=== PATIENT | female | born 1980 | race Caucasian/White ===

== ENCOUNTER 2024-10-17 09:42 | Emergency (ER) | payer OTHER, SELFPAY ==
--- NOTE | 2024-10-17 09:49 | ED.URI ---
HPI - URI/Sore Throat General Chief Complaint: Upper Respiratory Infection Stated Complaint: sore throat/ear pain Time Seen by Provider: 10/17/24 09:49 Source: patient Mode of arrival: ambulatory Limitations: no limitations History of Present Illness HPI Narrative: Keli is a 44 year old female patient presenting to the clinic today with c/o sore throat, cough, ear pain, chest congestion, and body aches x 2-3 days. No chest pain or sob MD elicited complaint: sore throat and nasal congestion Related Data Allergies Allergy/AdvReac Type Severity Reaction Status Date / Time No Known Allergies Allergy Verified 10/17/24 10:08 Review of Systems Review of Systems: Pertinent positives per HPI. Patient denies any fever, chills, rash, headache, visual changes, dizziness, shortness of breath, chest pain, palpitations, nausea, vomiting, diarrhea, constipation, abdominal pain, or any urinary issues. PMFSH Comments At the time of my signature, I reviewed and agree with the nursing past medical, surgical, social, and family history. There is no relevant family history pertinent to the patient complaint. Exam Narrative: General: Well-developed, well nourished, in no apparent distress Head: Normocephalic, atraumatic Eyes: Pupils equally round and reactive to light bilaterally, EOM intact, sclera and conjunctive clear, no discharge, lids normal Ears: TMs intact and congested, ear canals clear, no drainage, grossly hearing normal. Nose: Nares patent, clear nasal discharge, no inflammation, no sinus tenderness. Mouth: Oral pharynx without lesions or masses, good dentition, MMM. Neck: Supple, trachea midline, no enlargement of anterior or posterior cervical nodes, no thyroid masses or goiter palpable. Cardio: Regular rate and rhythm, s1 and s2 normal, no murmur appreciated. Resp: Clear to auscultation bilaterally, no rhonchi, rales, wheezing or rubs Course Course Emergency Course: Portions of this record may have been created with voice recognition software. Level of Care: Express Care Visit Vital Signs Vital signs: Vital signs reviewed MDM - URI/Sore Throat MDM Narrative Medical decision making narrative: At the time of visit patient is resting comfortably on the exam table. Patient appears to be nontoxic. Labs: COVID, influenza, and strep test were performed. All testing was negative. We will send strep for culture. Plan: I suspect patient has URI with cough and congestion/pharyngitis. Prescription for prednisone was sent to the pharmacy. Supportive measures were discussed with the patient and they voiced understanding discharge instructions and agrees to treatment plan. Return precautions reviewed Differential Diagnosis Differential diagnosis: Likely upper respiratory infection, otitis media, sinusitis, viral infection, bronchitis, influenza, pharyngitis and other (COVID) Discharge Plan Discharge Clinical Impression: Viral infection Upper respiratory infection Qualifiers: URI type: unspecified URI Qualified Code(s): J06.9 - Acute upper respiratory infection, unspecified Pharyngitis Qualifiers: Pharyngitis/tonsillitis etiology: unspecified etiology Qualified Code(s): J02.9 - Acute pharyngitis, unspecified Patient Disposition: Home, Self-Care Condition: Stable Instructions: Antibiotic Form, Pharyngitis (ED), Upper Respiratory Infection (ED), Viral Syndrome (ED) Additional Instructions: Take prescription medications only as prescribed-prednisone Increase fluids and stay well hydrated Tylenol/motrin for pain/fever Flonase and OTC antihistamines as directed Vicks vapor rub to open sinuses Sinus rinses for congestion Cepacol spray, cough drops, throat lozenges, warm tea with honey/lemon, gargle salt water to soothe throat BRAT diet for diarrhea Clear liquids x 24 hours then advance as tolerated for nausea/vomiting Go to the ED if you develop a worsening in your condition- high fever not controlled by Tylenol or Motrin, dehydration, weakness, lethargy, shortness of breath, or chest pain. Follow up with your PCP in 3-5 days if symptoms persist. Patient Language: Singaporean Prescriptions: New prednisone 20 mg tablet 40 mg PO DAILY 5 Days Qty: 10 0RF Follow-up/Referrals: UNKNOWN,DOCTOR [Non-Staff] - Stand Alone Forms: Work/School Release IP Time of Disposition: 10:25 Quality NIHSS Nursing Documentation ED NIHSS nursing documentation: reviewed/agree
[2024-10-17 10:05] VITALS: BP 149/94; PULSE 70; RESP 18; TEMP 36.3; O2SAT 99
[2024-10-17 10:22] LABS: EDSTREPNEGPOS1 Negative (Negative)
[2024-10-17 10:22] LABS: EDINFLUASCREEN Negative (Negative); EDINFLUBSCREEN Negative (Negative)
[2024-10-17 10:23] LABS: EDCOVIDSCREEN Negative (Negative)
--- OUTSIDE RECORDS SUMMARY | 2024-10-17 10:32 | XMS_ITS | Encounter Summary ---
Author Organization [facility] Address [address] [facility] [place] [address] Phone Care Team Providers Care Power Systems Engineer Name Role Phone William Mejia MD Primary Care Provider [phone] Corrie Reddy APRN, WIRE BOUND BOX MACHINE OPERATOR Unavailable [phone] Reason for Visit * Reason Onset Date Comments Medication Refill 10/16/2024 armodafinil 25 0 MG Tablet Encounter Details Date Type Department Care Team (Late st Contact Info) Description 10/16/2024 MyChart RX Renewal [facility] [address] [place] [address] Joseph Ness APRN, WIRE BOUND BOX MACHINE OPERATOR [address] [place] [address] Medication Renewal Reviewed Social History Tobacco Use Types Packs/Day Years Used Date Smoking Tobacco: Every Day Cigarettes 1 12 Passive Smoke Exposure: Past Smokeless Tobacco: Never Alcohol Use Standard Drinks/Week Comments No 0 (1 standard drink = 0.6 oz pur e alcohol) [facility] Utilities Answer Date Recorded In the past 12 months has [employer], gas, oil, or water [place] threatened to shut off services in your home? Patient declined 10/03/2024 Social Connection and Isolat ion Panel [NHANES] Answer Date Recorded In a typical week, how many times do you talk on the phone with family, friends, or neighbors? More than three times a week 10/03/2024 How often do you get togethe r with friends or relatives? Once a week 10/03/2024 How often do you attend chur ch or yarsani services? Never 10/03/2024 Do you belong to any clubs o r organizations such as advent groups, unions, fraternal or athletic groups, or school groups? No 10/03/2024 How often do you attend meet ings of the clubs or organizations you belong to? Never 10/03/2024 Are you , , di vorced, , never , or living with a partner? 10/03/2024 AUDIT-C Answer Date Recorded Q1: How often do you have a drink containing alcohol? Never 10/03/2024 Q2: How many drinks containi ng alcohol do you have on a typical day when you are drinking? Patient does not drink Q3: How often do you have si x or more drinks on one occasion? Never 10/03/2024 Overall Financial Resource Strain (CARDIA) Answe r Date Recorded How hard is it for you to pa y for the very basics like food, housing, medical care, and heating? Not very hard 10/03/2024 PHQ-2 Answer Date Recorded Total Score - Questions 1-9 18 07/10 [facility] - Occupational Stress Questionnaire Answer Date Recorded Do you feel stress - tense, restless, nervous, or anxious, or unable to sleep at night because your mind is troubled all the time - these days? Very much 10/03/2024 Exercise Vital Sign Answer Date Recorde d On average, how many days pe r week do you engage in moderate to strenuous exercise (like a brisk walk)? 4 days 10/03/2024 On average, how many minutes do you engage in exercise at this level? 30 min 10/03/2024 Hunger Vital Sign Answer Date Recorded Within the past 12 months, y ou worried that your food would run out before you got the money to buy more. Patient declined Within the past 12 months, t he food you bought just didn't last and you didn't have money to get more. Patient declined PRAPARE - Transportation Answer Date Re corded In the past 12 months, has l ack of transportation kept you from medical appointments or from getting medications? No 09/09 In the past 12 months, has l ack of transportation kept you from meetings, work, or from getting things needed for daily living? No 10/03/2024 Housing Stability Vital Sign Answer Jose Guadalupe e Recorded In the last 12 months, was t here a time when you were not able to pay the mortgage or rent on time? Yes 10/03/2024 In the past 12 months, how m any times have you moved where you were living? 1 10/03/2024 At any time in the past [address] [facility], were you homeless or living in a detention (including now)? No 10/03/2024 Education Answer Date Recorded What is the highest level of school you have completed or the highest degree you have received? Bachelor's degree (e.g., BA, AB, BS) 02/17/2021 Comments No Sex and Gender Information Value Date Recorded Sex Assigned at Female 08/07/2023 2:01 PM PATIENT SERVICE SPECIALIST Legal Sex Female 3:34 AM PATIENT SERVICE SPECIALIST Gender Identity Female 08/07/2023 2:01 PM PATIENT SERVICE SPECIALIST Sexual Orientation Straight 08/07/2023 2: 01 PM PATIENT SERVICE SPECIALIST documented as of this encounter Miscellaneous Notes * Telephone Encounter - Miranda Art RN - 10/16/2024 1:12 PM CDT patient requesting refill of armodafinil (Nuvigil) 250 MG Tablet Last office visit: 07/16/24 Follow up scheduled: 01/09/2025 9:30 AM Joseph Ness [facility]: Virtual Visit [phone] Date of last refill: 08/29/24 Plan Continue CPAP at new settings (8-15) all hours of sleep. Aim for a consistent 7-8 hour sleep opportunity nightly and apply CPAP every night. Will have RN look into DME options that are closer to patient's new home and will contact patient with these options. Mask fitting through new DME for nasal pillow mask. Continue armodafinil 250 mg daily PRN. Refill of this med will be contingent on nightly CPAP use. Follow up in 6 months. Call sooner if needed. Pended for provider approval, if deemed appropriate Routed Dr Pace in Joseph VILLATORO's absence documented in this encounter Plan of Treatment Upcoming Encounters Date Type Department Care Team (Late st Contact Info) Description 10/25/2024 10:40 AM CDT Office Visit [facility] [place] [address] [place] [phone] Fiorella Argueta, CIRCULATION MANAGER, WIRE BOUND BOX MACHINE OPERATOR [address] [place] [address] 01/09/2025 9:30 AM CDT Telemedicine [facility] [address] [place] [phone] Joseph Ness APRN, WIRE BOUND BOX MACHINE OPERATOR [address] [place], [place] [address] Discharge Disposition: Discharged to home or Selfcare documented as of this encounter Visit Diagnoses Diagnosis Hypersomnia Hypersomnia, unspecified documented in this encounter Additional Health Concerns Assessment Noted Time PHQ-9 Depression Total Score: 18 020 9:00 AM PATIENT SERVICE SPECIALIST documented as of this encounter Care Teams Power Systems Engineer Relationship Specialty Start Date End Date William Mejia MD [address] [address] PCP - General Internal Medicine/Pediatrics 04/11/15 Corrie Reddy APRN, WIRE BOUND BOX MACHINE OPERATOR [address] [place] [address] Nurse Practitioner Advanced Practice Nurse 07/09/21 documented as of this encounter
--- OUTSIDE RECORDS SUMMARY | 2024-10-17 10:32 | XMS_ITS | Encounter Summary ---
Author Organization [facility] Address [address] [place] [address] Phone Care Team Providers Care Counterintelligence Specialist Name Role Phone William Mejia MD Primary Care Provider Corrie Reddy APRN, DIET TECHNICIAN REGISTERED Unavailable Reason for Visit * Reason Onset Date Comments Medication Refill 07/01/2021 buspar, buprop ion Encounter Details Date Type Department Care Team (Late st Contact Info) Description 07/01/2021 Refill [facility] [address] [place], [place] [phone] Corrie Reddy APRN, DIET TECHNICIAN REGISTERED [address] [place], [place] [phone] Medication Refill (buspar, bupropion ) Social History Tobacco Use Types Packs/Day Years Used Date Smoking Tobacco: Every Day Cigarettes 1 12 Smokeless Tobacco: Never Alcohol Use Standard Drinks/Week Comments No 0 (1 standard drink = 0.6 oz pur e alcohol) PHQ-2 Answer Date Recorded Total Score - Questions 1-9 18 07/10 Education Answer Date Recorded What is the highest level of school you have completed or the highest degree you have received? Bachelor's degree (e.g., BA, AB, BS) 02/17/2021 Comments No Sex and Gender Information Value Date Recorded Sex Assigned at Female 08/07/2023 2:01 PM BULLET SWAGING MACHINE ADJUSTER Legal Sex Female 3:34 AM BULLET SWAGING MACHINE ADJUSTER Gender Identity Female 08/07/2023 2:01 PM BULLET SWAGING MACHINE ADJUSTER Sexual Orientation Straight 08/07/2023 2: 01 PM BULLET SWAGING MACHINE ADJUSTER COVID-19 Exposure Response Date Recorded In the last month, have you been in contact with someone who was confirmed or suspected to have Coronavirus / COVID-19? Yes 06/05/2021 2:01 PM CDT documented as of this encounter Miscellaneous Notes * Telephone Encounter - Radha Ortega RN - 07/01/2021 9:27 AM CST Refill request received for Buspar 10 mg three times daily. Bupropion XL 300 mg every morning. EMANI: 01/14/2021 NOV: Visit date not found Last Ordered: Buspar 01/14/21 #270 with 0 refills. Bupropion 01/14/21 #90 with 0 refills. Medication pended and routed for review. ET SWAGING MACHINE ADJUSTER documented in this encounter Plan of Treatment Upcoming Encounters Date Type Department Care Team (Late st Contact Info) Description 10/25/2024 10:40 AM CDT Office Visit [facility] [address] [phone] Fiorella Argueta, FUEL ATTENDANT, DIET TECHNICIAN REGISTERED [address] [place] [address] 01/09/2025 9:30 AM CDT Telemedicine [facility] [address] [place] [phone] Joseph Ness, FUEL ATTENDANT, DIET TECHNICIAN REGISTERED [address] [place], [place] [phone] Discharge Disposition: Discharged to home or Selfcare documented as of this encounter Visit Diagnoses Diagnosis Persistent mood (affective) disorder, unspecified (HCC) Generalized anxiety disorder with panic attacks documented in this encounter Additional Health Concerns Infection Onset Date Last Indicated Resolved Time COVID - 19 08/07/2021 08/07/2021 08/27/2021 12:1 6 AM BULLET SWAGING MACHINE ADJUSTER COVID - 19 07/30/2022 07/30/2022 08/09/2022 12:1 6 AM BULLET SWAGING MACHINE ADJUSTER Influenza 07/30/2022 07/30/2022 08/06/2022 12:1 6 AM BULLET SWAGING MACHINE ADJUSTER COVID - 19 Comment:Rapid strep positive 08/08/2023 08/08/2023 08/11/2023 12:22 PM BULLET SWAGING MACHINE ADJUSTER Assessment Noted Time PHQ-9 Depression Total Score: 18 020 9:00 AM BULLET SWAGING MACHINE ADJUSTER documented as of this encounter Care Teams Counterintelligence Specialist Relationship Specialty Start Date End Date William Mejia MD [address] [facility] [address] [place], [place] [phone] PCP - General Internal Medicine/Pediatrics 04/11/15 Corrie Reddy APRN, DIET TECHNICIAN REGISTERED [address] [place], [place] [phone] Nurse Practitioner Advanced Practice Nurse 07/09/21 documented as of this encounter
--- OUTSIDE RECORDS SUMMARY | 2024-10-17 10:32 | XMS_ITS | Encounter Summary ---
Author Organization [facility] Address [address] [place] [address] Phone Care Team Providers Care Carton Repairer Name Role Phone William Mejia MD Primary Care Provider Corrie Reddy APRN, LOCAL COMPANY TRUCK DRIVER Unavailable [phone] Reason for Visit * Reason Onset Date Comments Prior Authorization 10/16/2024 armodafinil Encounter Details Date Type Department Care Team (Late st Contact Info) Description 10/16/2024 Telephone [facility] [address] [place] [address] Ihsan Pace MD [address] [place], [place] [phone] Prior Authorization (armodafinil) Social History Tobacco Use Types Packs/Day Years Used Date Smoking Tobacco: Every Day Cigarettes 1 12 Passive Smoke Exposure: Past Smokeless Tobacco: Never Alcohol Use Standard Drinks/Week Comments No 0 (1 standard drink = 0.6 oz pur e alcohol) [facility] Utilities Answer Date Recorded In the past 12 months has [employer], gas, oil, or water [employer] threatened to shut off services in your [...] often do you attend chur ch or presybeterian services? Never 10/03/2024 Do you belong to any clubs o r organizations such as congregation groups, unions, fraternal or athletic groups, or [...] Total Score - Questions 1-9 18 07/10 [facility] - Occupational [...] any time in the past 12 m [facility], were you homeless or living in a long-term (including now)? No 10/03/2024 Education Answer Date Recorded What is the highest level of school you have completed or the highest degree you have received? Bachelor's degree (e.g., BA, AB, BS) 02/17/2021 Comments No Sex and Gender Information Value Date Recorded Sex Assigned at Female 08/07/2023 2:01 PM HOTEL DINING ROOM CASHIER Legal Sex Female 3:34 AM HOTEL DINING ROOM CASHIER Gender Identity Female 08/07/2023 2:01 PM HOTEL DINING ROOM CASHIER Sexual Orientation Straight 08/07/2023 2: 01 PM HOTEL DINING ROOM CASHIER documented as of this encounter Miscellaneous Notes * Telephone Encounter - Maria Isabel Caraballo RN - 10/16/2024 5:27 PM CDT Received fax from [employer] in [place], [place] stating prior authorization is needed for armodafinil. Submitted PA request for armodafinil via [employer], along with sleep study and 07/16/24 televisitnotes. Aaron #[id number]. documented in this encounter Plan of Treatment Upcoming Encounters Date Type Department Care Team (Late st Contact Info) Description 10/25/2024 10:40 AM CDT Office Visit [facility] - [address] [address] Fiorella Argueta, BRANCH EMPLOYMENT COORDINATOR, LOCAL COMPANY TRUCK DRIVER [address] [place], [place] [address] 01/09/2025 9:30 AM CDT Telemedicine [facility] [address] [place] [address] Joseph Ness APRN, LOCAL COMPANY TRUCK DRIVER [address] [place], [place] [phone] Discharge Disposition: Discharged to home or Selfcare documented as of this encounter Visit Diagnoses Not on filedocumented in this encounter Additional Health Concerns Assessment Noted Time PHQ-9 Depression Total Score: 18 020 9:00 AM HOTEL DINING ROOM CASHIER documented as of this encounter Care Teams Carton Repairer Relationship Specialty Start Date End Date William Mejia MD [address] [address] PCP - General Internal Medicine/Pediatrics 04/11/15 Corrie Reddy APRN, LOCAL COMPANY TRUCK DRIVER [address] [place] [address] Nurse Practitioner Advanced Practice Nurse 07/09/21 documented as of this encounter
--- OUTSIDE RECORDS SUMMARY | 2024-10-17 10:32 | XMS_ITS | Encounter Summary ---
Author Organization [facility] Address [address] [place] [address] Phone Care Team Providers Care Agriculture Internship Name Role Phone William Mejia MD Primary Care Provider Corrie Reddy APRN, SPEECH LANGUAGE PATHOLOGY ASSISTANT Unavailable [phone] Reason for Visit * Reason Comments Medication Refill Encounter Details Date Type Department Care Team (Late st Contact Info) Description 07/07/2023 Refill [facility] [place] [address] [place] [address] Fiorella Argueta, [place], SPEECH LANGUAGE PATHOLOGY ASSISTANT [address] [place], [place] [address] Medication Refill Social History Tobacco Use Types Packs/Day Years [...] Sex Assigned at Female 08/07/2023 2:01 PM AFLOAT CRYPTOLOGIC MANAGER Legal Sex Female 3:34 AM AFLOAT CRYPTOLOGIC MANAGER Gender Identity Female 08/07/2023 2:01 PM AFLOAT CRYPTOLOGIC MANAGER Sexual Orientation Straight 08/07/2023 2: 01 PM AFLOAT CRYPTOLOGIC MANAGER documented as of this encounter Miscellaneous Notes * Telephone Encounter - Penny Augustine RN - 07/07/2023 11:19 AM AFLOAT CRYPTOLOGIC MANAGER Requested Prescriptions Pending Prescriptions Disp Refills tiZANidine (ZANAFLEX) 4 MG Tablet [Pharmacy Med Name: TIZANIDINE HCL TABS 4MG] 30 Tablet 0 Sig: TAKE 1 TABLET EVERY 6 HOURS NEEDED FOR MUSCLE SPASMS Not Delegated - Muscle Relaxants Protocol Failed - 07/07/2023 4:37 AM Failed - This refill cannot be delegated Passed - Visit with relevant provider in past 12 months or upcoming 90 days Recent Visits Date Type Provider Dept 05/18/23 Office Visit Fiorella Argueta APRN, C[facility] 01/12/23 Office Visit William Mejia MD [facility] 08/31/22 Office Visit Fiorella Argueta APRN, CNP [facility] 07/30/22 Office Visit William Mejia MD [facility] 07/26/22 Office Visit Fiorella Argueta APRN, C[facility] Showing recent visits within past 365 days and meeting all other requirements Future Appointments No visits were found meeting these conditions. Showing future appointments within next 90 days and meeting all other requirements Passed - ALT less than 90 and AST less than 55 on record in past 12 months SGOT (AST) Date Value Ref Range Status 01/24/2023 24 5 - 34 U/L Final SGPT (ALT) Date Value Ref Range Status 01/24/2023 38 0 - 55 U/L Final AT CRYPTOLOGIC MANAGER documented in this encounter Plan of Treatment Upcoming Encounters Date Type Department Care Team (Late st Contact Info) Description 10/25/2024 10:40 AM CDT Office Visit [facility] - [address] [address] Fiorella Argueta APRN, SPEECH LANGUAGE PATHOLOGY ASSISTANT [address] [place] [address] 01/09/2025 9:30 AM CDT Telemedicine [facility] [address] [place] [phone] Joseph Ness APRN, SPEECH LANGUAGE PATHOLOGY ASSISTANT [address] [place] [address] Discharge Disposition: Discharged to home or Selfcare documented as of this encounter Visit Diagnoses Diagnosis Neck pain Cervicalgia documented in this encounter Additional Health Concerns Infection Onset Date Last Indicated Resolved Time COVID - 19 Comment:Rapid strep positive 08/08/2023 08/08/2023 08/11/2023 12:22 PM AFLOAT CRYPTOLOGIC MANAGER Assessment Noted Time PHQ-9 Depression Total Score: 18 020 9:00 AM AFLOAT CRYPTOLOGIC MANAGER documented as of this encounter Care Teams Agriculture Internship Relationship Specialty Start Date End Date William Mejia MD 10 [facility] [address] [place] [address] PCP - General Internal Medicine/Pediatrics 04/11/15 Corrie Reddy APRN, SPEECH LANGUAGE PATHOLOGY ASSISTANT [address] [place] [address] Nurse Practitioner Advanced Practice Nurse 07/09/21 documented as of this encounter
--- OUTSIDE RECORDS SUMMARY | 2024-10-17 10:32 | XMS_ITS | Encounter Summary ---
Author Organization [facility] Address [address] [place] [address] Phone Care Team Providers Care Thermograph Operator Name Role Phone William Mejia MD Primary Care Provider [phone] Corrie Reddy APRN, OIL BURNER MECHANIC Unavailable [phone] Encounter Details Date Type Department Care Team (Late st Contact Info) Description 10/05/2021 Behavioral Health Patient Survey [facility] Psychiatry & Psychology [address] [place], [place] [phone] Corrie Reddy APRN, OIL BURNER MECHANIC [address] [place], [place] [id number] Social History Tobacco Use Types Packs/Day Years Used Date Smoking Tobacco: Former Cigarettes 1 12 Smokeless Tobacco: Never Alcohol [...] Sex Assigned at Female 08/07/2023 2:01 PM BOMBSIGHT SPECIALIST Legal Sex Female 3:34 AM BOMBSIGHT SPECIALIST Gender Identity Female 08/07/2023 2:01 PM BOMBSIGHT SPECIALIST Sexual Orientation Straight 08/07/2023 2: 01 PM BOMBSIGHT SPECIALIST COVID-19 Exposure Response Date Recorded In the last month, have you been in contact with someone who was confirmed or suspected to have Coronavirus / COVID-19? No / Unsure 10/05/2021 2:57 PM BOMBSIGHT SPECIALIST documented as of this encounter Plan of Treatment Upcoming Encounters Date Type Department Care Team (Late st Contact Info) Description 10/25/2024 10:40 AM CDT Office Visit [facility] [place] [address] [place] [phone] Fiorella Argueta, APPOINTMENT CLERK, OIL BURNER MECHANIC [address] [place], [place] [address] 01/09/2025 9:30 AM CDT Telemedicine [facility] [address] [place] [address] Joseph Ness APRN, OIL BURNER MECHANIC [address] [place] [address] Discharge Disposition: Discharged to home or Selfcare documented as of this encounter Visit Diagnoses Not on filedocumented in this encounter Additional Health Concerns Infection Onset Date Last Indicated Resolved Time COVID - 19 07/30/2022 07/30/2022 08/09/2022 12:1 6 AM BOMBSIGHT SPECIALIST Influenza 07/30/2022 07/30/2022 08/06/2022 12:1 6 AM BOMBSIGHT SPECIALIST COVID - 19 Comment:Rapid strep positive 08/08/2023 08/08/2023 08/11/2023 12:22 PM BOMBSIGHT SPECIALIST Assessment Noted Time PHQ-9 Depression Total Score: 18 020 9:00 AM BOMBSIGHT SPECIALIST documented as of this encounter Care Teams Thermograph Operator Relationship Specialty Start Date End Date William Mejia MD [address] [id number] PCP - General Internal Medicine/Pediatrics 04/11/15 Corrie Reddy, APPOINTMENT CLERK, OIL BURNER MECHANIC [address] [place] [address] Nurse Practitioner Advanced Practice Nurse 07/09/21 documented as of this encounter
--- OUTSIDE RECORDS SUMMARY | 2024-10-17 10:32 | XMS_ITS | Encounter Summary ---
Author Organization [facility] Address [address] [place] [address] Phone Care Team Providers Care Machine Puller And Laster Name Role Phone William Mejia MD Primary Care Provider [phone] Corrie Reddy APRN, SHEET ROCK APPLIER Unavailable [phone] Reason for Visit * Reason Comments Medication Refill Encounter Details Date Type Department Care Team (Late st Contact Info) Description 10/20/2023 Refill [facility] [place] [address] [place] [address] Fiorella Argueta, [place], SHEET ROCK APPLIER [address] [place] [phone] Medication Refill Social History Tobacco Use Types [...] Sex Assigned at Female 08/07/2023 2:01 PM GREENHOUSE WORKER Legal Sex Female 3:34 AM GREENHOUSE WORKER Gender Identity Female 08/07/2023 2:01 PM GREENHOUSE WORKER Sexual Orientation Straight 08/07/2023 2: 01 PM GREENHOUSE WORKER documented as of this encounter Miscellaneous Notes * Telephone Encounter - Mayuri Rueda RN - 10/21/2023 8:11 AM CDT Medication failed the protocol, provider to review and approve the medication order if appropriate. Requested Prescriptions Pending Prescriptions Disp Refills pramipexole (MIRAPEX) 1 MG Tablet [Pharmacy Med Name: PRAMIPEXOLE DIHYDROCHLORIDE TABS 1MG] 90 Tablet 3 Sig: TAKE 1 TABLET EVERY EVENING Antiparkinson Dopaminergics and COMT Protocol Passed - 10/20/2023 11:32 PM Passed - Visit with relevant provider in the past 9 months or upcoming 90 days Recent Visits Date Type Provider Dept 10/11/23 Office Visit Fiorella Argueta APRN, CNP [facility] [place] 05/18/23 Office Visit Fiorella Argueta APRN, CNP [facility] Showing recent visits within past 270 days and meeting all other requirements Future Appointments No visits were found meeting these conditions. Showing future appointments within next 90 days and meeting all other requirements Passed - Blood pressure on record in past 12 months Clinician-entered: BP Readings from Last 3 Encounters: 10/11/23 124/88 08/08/23 115/82 05/18/23 (!) 140/98 Patient-entered: No data recorded documented in this encounter Plan of Treatment Upcoming Encounters Date Type Department Care Team (Late st Contact Info) Description 10/25/2024 10:40 AM CDT [facility] [address] [phone] Fiorella Argueta APRN, SHEET ROCK APPLIER [address] [place] [address] 01/09/2025 9:30 AM CDT Telemedicine [facility] [address] [place] [phone] Joseph Ness APRN, SHEET ROCK APPLIER [address] [place] [address] Discharge Disposition: Discharged to home or Selfcare documented as of this encounter Visit Diagnoses Not on filedocumented in this encounter Additional Health Concerns Assessment Noted Time PHQ-9 Depression Total Score: 18 020 9:00 AM GREENHOUSE WORKER documented as of this encounter Care Teams Machine Puller And Laster Relationship Specialty Start Date End Date William Mejia MD [address] [address] PCP - General Internal Medicine/Pediatrics 04/11/15 Corrie Reddy APRN, SHEET ROCK APPLIER [address] [place] [address] Nurse Practitioner Advanced Practice Nurse 07/09/21 documented as of this encounter
--- OUTSIDE RECORDS SUMMARY | 2024-10-17 10:33 | XMS_ITS | Clinical Summary ---
Author Organization [facility] Address [address] [place] [address] Phone Care Team Providers Care Office Systems Technology Instructor Name Role Phone William Mejia MD Primary Care Provider [phone] Corrie Reddy APRN, BEAM WORKER Unavailable [phone] Allergies Active Allergy Reactions Criticality Noted Date Comments No Known Drug Allergy Other (see Comments) Medications ibuprofen 800 MG PO TABS Take 1 Tab by mouth every 6 hours as needed for Pain (for temperature greater than 100.4 F). 40 Tab 2 4 Active albuterol 108 (90 Base) MCG/ACT Aerosol Solution take 2 Puffs by inhalation every 4 hours as needed for Wheezing or Cough. 8 g 3 Active SUMAtriptan (IMITREX) 50 MG Tablet Take 1 Tablet by mouth once as needed for Migraine for up to 1 dose. Use as directed. May repeat dose in 2 hours if headache recurs. 9 Tablet 3 3 Active Additional Information Patient not taking.Reported on 10/03/2024 Rizatriptan Benzoate (Maxalt) 10 MG Tablet Take 10 mg by mouth once as needed for Headaches. May repeat in 2 hours in needed Active Ascorbic Acid (VITAMIN C PO) Take by mouth. Active BIOTIN FORTE PO Take by mouth. Active [place]-3 Fatty Acids (FISH OIL PO) Take by mouth. Activ e VITAMIN D PO Take by mouth. Ac tive Zinc Sulfate (ZINCATE PO) Take by mouth. Ac tive MAGNESIUM PO Take by mouth. Ac tive B Complex Vitamins (VITAMIN-B COMPLEX PO) Take by mouth. Act edil COLLAGEN PO Take by mouth. Act edil APPLE CIDER VINEGAR PO Take by mouth. Acti ve pramipexole (MIRAPEX) 1 MG Tablet Take 1 Tablet by mouth every evening. 90 Tablet 3 5 Active metoprolol tartrate (LOPRESSOR) 25 MG Tablet Take 25 mg by mouth daily. Active venlafaxine (EFFEXOR-XR) 75 MG CAPSULE SR 24 HRIndications:P ersistent depressive disorder Take 1 Capsule by mouth daily. 90 Capsule 5 Active lisinopril (PRINIVIL, ZESTRIL) 10 MG TabletIndicatio ns:Hypertension , unspecified type Take 1 Tablet by mouth daily. 90 Tablet 3 5 Active armodafinil (Nuvigil) 250 MG TabletIndicatio ns:Hypersomnia Take 1 Tablet by mouth every morning. 30 Tablet 5 5 Active venlafaxine (Effexor XR) 37.5 MG CAPSULE SR 24 HRIndications:P ersistent depressive disorder Take 37.5 mg by mouth daily. 025 Discontin ued(Dose adjustmen t) armodafinil (Nuvigil) 250 MG TabletIndicatio ns:Hypersomnia Take 1 Tablet by mouth every morning. 30 Tablet 5 025 Discontin ued(Reord er) Active Problems Problem Noted Date Diagnosed Date Hypersomnia 07/30/2024 Migraine without status migrainosus, not intract able 08/30/2022 Reflux gastritis 07/25/2022 Thyroid nodule 07/25/2022 Borderline personality disorder 07/25/2022 Restless leg 01/23/2020 MARY (obstructive sleep apnea)- AHI 7 06/02/2015 Overview (06/02/2015): Diagnosed 04/2015 Home apnea testing, baseline apnea-hypopnea index 7 events per hour @ 233 lbs. Initially referred for excessive daytime sleepiness and fatigue Obesity, Class III, BMI 40-49.9 (morbid obesity) 05/21/2015 Smoker 11/06/2006 Overview (03/31/2010): 1 PPD X 3-4 YRS. Depression Encounters Date Type Department Care Team Description 10/16/2024 Telephone [facility] [address] [place] [phone] Ihsan Pace MD Prior Authorization (armodafinil) 10/16/2024 MyChart RX Renewal [facility] [address] [place] [address] Joseph Ness APRN, BEAM WORKER Medication Renewal Reviewed 10/03/2024 9:00 AM FAST BRIM POUNCER Telemedicine [address] [phone] Fiorella Argueta APRN, BEAM WORKER Obesity, Class III, BMI 40-49.9 (morbid obesity) ([facility]) (Primary Dx); Persistent depressive disorder; MARY (obstructive sleep apnea)- AHI 7; Hypersomnia; Hypertension, unspecified type; Arthralgia, unspecified joint 10/03/2024 Travel 08/28/2024 MyChart RX Renewal [address] [phone] Fiorella Argueta APRN, BEAM WORKER Medication Renewal Reviewed 08/28/2024 MyChart RX Renewal [facility] [address] [place] [phone] Zofia Gil APRN, BEAM WORKER Medication Renewal Reviewed 08/27/[address] [phone] William Mejia MD 08/15/[address] [phone] William Mejia MD Appointment 07/30/2024 12:40 PM FAST BRIM POUNCER Office Visit [address] [phone] Fiorella Argueta APRN, BEAM WORKER Physical exam, pre-employment (Primary Dx); Persistent depressive disorder; MARY (obstructive sleep apnea)- AHI 7; Migraine without status migrainosus, not intractable, unspecified migraine type; Obesity, Class III, BMI 40-49.9 (morbid obesity) (HCC); Hypersomnia; Visit for screening mammogram Discharge Disposition: Discharged to home or Selfcare 07/30/2024 Travel from Last 3 Months Immunizations Immunization Administration Dates Next Due DTAP VACCINE 03/20/2006, 3,01/13/2002,2001,06/17/2001 Hepatitis B Vaccine 07/20/2006,01/07/2006,2005 Influenza Vaccine 05/18/2024,07/06/2021 Influenza Vaccine greater than 3 yrs ,05/08/2018,05/22/2015,2014 Influenza Vaccine, Quadrivalent, PF 05/18/2023,1 MMR Vaccine 03/25/1992,11/02/1982 OPV 03/20/2006, 3,06/29/2002,2001 TB Skin Test 07/26/2022,12/27/2005,03/26/2004 TDAP Vaccine 08/08/2013 Family History Medical History Relation Name Comments Diabetes Maternal Grandmother Kidney Disease Maternal Grandmother ESRD Cancer Mother Unknown Primary /Cervical Mental Disorder, Other Mother Other-comment Mother Barretts Mental Disorder, Other Sister Disso ciative Identity Disorder, PTSD Breast Cancer Neg Hx Ovarian Cancer Neg Hx Relation Name Status Comments Maternal Grandmother Mother Sister Social History Tobacco Use Types Packs/Day Years Used Date Smoking Tobacco: Every Day Cigarettes 1 12 Passive Smoke Exposure: Past Smokeless Tobacco: Never Tobacco Cessation:Ready to Q uit: Not Asked; Counseling Given: Not Answered Alcohol Use Standard Drinks/Week Comments No 0 (1 standard drink = 0.6 oz pur e alcohol) [facility] Utilities Answer Date Recorded In the past 12 months has [employer], gas, oil, or water [employer] threatened to shut off services in your [...] often do you attend chur ch or roman catholic services? Never 10/03/2024 Do you belong to any clubs o r organizations such as congregational groups, unions, fraternal or athletic groups, or [...] Total Score - Questions 1-9 18 07/10 [facility] - Occupational Stress Questionnaire Answer Date Recorded [...] any time in the past 12 [facility], were you homeless or living in a fpc (including now)? No 10/03/2024 Education Answer Date Recorded What is the highest level of school you have completed or the highest degree you have received? Bachelor's degree (e.g., BA, AB, BS) 02/17/2021 Comments No Sex and Gender Information Value Date Recorded Sex Assigned at Female 08/07/2023 2:01 PM FAST BRIM POUNCER Legal Sex Female 3:34 AM FAST BRIM POUNCER Gender Identity Female 08/07/2023 2:01 PM FAST BRIM POUNCER Sexual Orientation Straight 08/07/2023 2: 01 PM FAST BRIM POUNCER Last Filed Vital Signs Vital Sign Reading Time Taken Comments Blood Pressure 126/88 07/30/2024 12:31 PM FAST BRIM POUNCER Pulse 95 07/30/2024 12:31 PM FAST BRIM POUNCER Temperature 36.9 C (98.5 F) 07/30/2024 12:31 PM FAST BRIM POUNCER Respiratory Rate 16 07/30/2024 12:3 1 PM FAST BRIM POUNCER Oxygen Saturation 99% 07/30/2024 12: 31 PM FAST BRIM POUNCER Inhaled Oxygen Concentration - - Weight 119.3 kg (263 lb 1.6 oz) 024 12:31 PM FAST BRIM POUNCER Height 160 cm (5' 3 ) 07/30/2024 12:31 PM FAST BRIM POUNCER Body Mass Index 46.61 07/30/2024 12:31 PM FAST BRIM POUNCER Plan of Treatment Upcoming Encounters Date Type Department Care Team (Late st Contact Info) Description 10/25/2024 10:40 AM CDT Office Visit [facility] [address] [phone] Fiorella Argueta, PROGRAM DEVELOPMENT MANAGER, BEAM WORKER [address] [place] [address] 01/09/2025 9:30 AM CDT Telemedicine [facility] [address] [place] [address] Joseph Ness, PROGRAM DEVELOPMENT MANAGER, BEAM WORKER [address] [place] [address] Discharge Disposition: Discharged to home or Selfcare Health Maintenance Due Date Last Done Comments Pneumococcal Immunization Combined (1 of 2 - PCV) 2000 HPV/Cotest 2011 Cervical Cancer Screening (CCS) 08/29/2016 Pap Smear 08/29/2016 08/29/2013, 01/01/2009 DTaP/Tdap/Td Immunization (6 - Td or Tdap) 08/08/2023 08/08/2013, 03/20/2006, 01/20/2003, Additional history exists Td Immunization Every 10 Years (Adults With 1 Tdap) 08/08/2023 08/08/2013 Mammogram 03/09/2024 03/09/2023 SARS-COV-2 Immunization ( season) 2024 07/28/2021, 07/09/2021 Respiratory Syncytial Virus (RSV) Immunization (Adult) (1 - 1-dose 75+ series) 2056 Hepatitis B Immunization Completed 006, 01/07/2006, 12/10/2005 Hepatitis C Virus (HCV) Screening Completed 06/02/2021 Discussion re Starting/Frequency of Mammograms Completed 03/09/2023 Influenza Immunization Completed , 05/18/2023, 07/06/2021, Additional history exists Meningococcal Immunization (ACWY) Aged Out No longer eligible based on patient's age to complete this topic Rotavirus Immunization Aged Out No lo nger eligible based on patient's age to complete this topic Procedures Procedure Name Priority Date/Time Associated Diagnosis Comments MALA SCREENING BILATERAL DIGITAL W CAD W MARCIA Routine 03/09/2023 10:52 AM CDT Visit for screening mammogram HEPATITIS PANEL ACUTE (AHP) STAT 06/02/2021 12:48 PM CDT PATHOLOGY CYTOLOGY TRIMMER LOADER Routine 08/29/2013 3:00 PM FAST BRIM POUNCER Screening for malignant neoplasm of the cervix [ICD-9-CM] from Last 3 Months or Most Recently Relevant to Health Maintenance Results * [facility] SCREENING BILATERAL DIGITAL W CAD W MARCIA (03/09/2023 10:52 AM CDT) Anatomical Region Laterality Modality breast Bilateral Mammography 03/09/2023 10:5 2 AM CDT Impressions 03/09/2023 3:31 PM CDT IMPRESSION: 1. No mammographic evidence of malignancy. RECOMMENDATION: Annual screening mammography in 1 year BI-RADS 1 - NEGATIVE Narrative 03/09/2023 3:31 PM CDT DICTATING PHYSICIAN: Izabel Carrillo MD EXAM: [facility] SCREENING BILATERAL DIGITAL W CAD W MARCIA, 03/09/2023 10:52 AM COMPARISON: None. Baseline. HISTORY: Routine screen. FINDINGS: Routine CC and MLO views were obtained. Current study was also evaluated with a Computer Aided Detection (CAD) system. 3-D multiplanar mammographic projections were obtained (tomosynthesis). There are scattered areas of fibroglandular density. There are no focal suspicious masses, calcifications, or areas of architectural distortion. Procedure Note Izabel Carrillo MD - 03/09/2023 DICTATING PHYSICIAN: Izabel Carrillo MD EXAM: [facility] SCREENING BILATERAL DIGITAL W CAD W MARCIA, 03/09/2023 10:52 AM COMPARISON: None. Baseline. HISTORY: Routine screen. FINDINGS: Routine CC and MLO views were obtained. Current study was alsoevaluated with a Computer Aided Detection (CAD) system. 3-D multiplanarmammographic projections were obtained (tomosynthesis). There are scattered areas of fibroglandular density. There are no focal suspicious masses, calcifications, or areas ofarchitectural distortion. IMPRESSION: 1. No mammographic evidence of malignancy. RECOMMENDATION: Annual screening mammography in 1 year BI-RADS 1 - NEGATIVE us Fiorella Argueta PROGRAM DEVELOPMENT MANAGER, BEAM WORKER IMG MAMMO ORDERABLE S Final Result * Hepatitis Panel Acute (AHP) (06/02/2021 12:48 PM CDT) HEPATITIS A IGM ANTIBODY NON DETECTED NON DETECTED [address] B 06/02/2021 3:14 PM CDT [facility] Comment: IGM Antibodies to HAV not detected. Does not exclude early acute or recovered HAV infection. HEP B CORE AB (IGM) NON DETECTED NON DETECTED [address] 06/02/2021 3:14 PM CDT [facility] Comment:IGM anti-HBC not det ected. Does not exclude the possibility of exposure to or infection with HBV. HEPATITIS B SURFACE ANTIGEN NON DETECTED NON DETECTED [address] 06/02/2021 3:14 PM CDT [facility] Comment:A nonreactive test r esult does not exclude the possibility of exposure to or infection with Hepatitis B virus. A nonreactive test result in individuals with prior exposure to hepatitis B may be due to antigen levels below the detection limit of this assay or lack of antigen reactivity to the antibodies in this assay. hepatitis C antibody 0.26 <1 S/CO [address] 06/02/2021 3:14 PM CDT [facility] Comment: Signal/Cutoff ratio < 0.79 is Nondetected Signal/Cutoff ratio 0.80-0.99 is Grayzone Signal/Cutoff ratio > 0.99 is Detected Supplemental assays are recommended if signal/cutoff ratio is >/=1.00. Signal/cutoff ratio result >/= 5.00 is 97% predictive of positivity for recombinant immunoblot assay (RIBA) and will be reported to the [place] Department of Public Health as required. Blood Venipuncture / Unknown 06/02/2021 12:48 PM CDT 06/02/2021 12:53 PM CDT us Pedro Yap MD HEMATOLOGY ORDERABLES Final Result [facility] [address] [place] [address], * PATHOLOGY CYTOLOGY TRIMMER LOADER (08/29/2013 3:00 PM FAST BRIM POUNCER) Pathologist [facility] SPECIMEN ADEQUACY Satisfactory for evaluation. Endocervical cells present. 09/11/2013 9:50 AM [facility] DESCRIPTIVE DIAGNOSIS Negative for intraepithelial lesions. No dysplastic cells present. 09/11/2013 9:50 AM [facility] MATED EXAMINATION Analysis of this sample has been assisted by an automated imaging and review system ([employer], [employer], [place], [place]). This case is further evaluated and finalized by a migration agent and/or pathologist. 09/11/2013 9:50 AM [facility] DISCLAIMER The PAP smear is a preliminary screening procedure designed to detect the presence of cancerous or precancerous cells of the cervix. It is the best means available for early detection of cervical cancer, but it is not perfect. False negative results will sometimes be reported. To reduce the possibility of a false negative result, an annual PAP smear is recommended. Moreover, any suspicious signs of possible symptoms of cancer should be followed up. 09/11/2013 9:50 AM [facility] Case Report Gynecologic Cytology Report Case: [id number] --- Authorizing Provider: Brit Mckeon MD Ordering Provider: First Screen: Kyle Santos Collected: 08/29/2013 3:00 PM Received: 08/31/2013 2:02 PM Signed Out: 09/11/2013 9:50 AM (Final) Specimen: Cervical, liquid based thin layer preparation (Thin Prep ), CERVIX 09/11/2013 9:50 AM [facility] Specimen of unknown material (specimen) CERVIX UTERI STRUCTURE / Unknown 08/29/2013 3:00 PM FAST BRIM POUNCER 08/31/2013 2:02 PM FAST BRIM POUNCER Brit Mckeon MD PATHOLOGY/CYTOLOGY ORDERABLES Fi nal Result [facility] [address] [place] [address] from Last 3 Months or Most Recently Relevant to Health Maintenance Insurance Advance Directives Documents on File Type Date Recorded Patient Slaughterer Religious Ritual Expl anation Power of Finance Officer for Health Care 01/02/2018 10:49 AM POA-HC 12/15/17 Advance Care Planning Discussion 01/02/2018 10:47 AM ACP DISCUSSION RECOR D 12/15/17 * Full Code (Latest Code Status on File) Date Activated Date Inactivated Comments 11/03/2015 8:00 AM 11/03/2015 3:19 PM Full Code: FULL ARREST: Attempt Resuscitation/CPR and use intubation and mechanical ventilation as indicated. PRE-ARREST: Use all measures to stabilize patient. * Full Code Date Activated Date Inactivated Comments 10/26/2013 11:49 AM 10/27/2013 6:57 PM * Full Code Date Activated Date Inactivated Comments 09/13/2013 7:46 AM 09/13/2013 3:25 PM Care Teams Office Systems Technology Instructor Relationship Specialty Start Date End Date William Mejia MD [address] [facility] [address] [place] [address] PCP - General Internal Medicine/Pediatrics 04/11/15 Corrie Reddy, IRVING, BEAM WORKER [address] [place] [address] Nurse Practitioner Advanced Practice Nurse 07/09/21
--- OUTSIDE RECORDS SUMMARY | 2024-10-17 10:33 | XMS_ITS | Encounter Summary ---
Author Organization [facility] Address [address] [place] [address] Phone Care Team Providers Care Cotton Seed Culler Name Role Phone William Mejia MD Primary Care Provider [phone] Corrie Reddy APRN, TUMBLE TAILSTOCK TURRET LATHE OPERATOR Unavailable Reason for Visit * Reason Comments Medication Refill Encounter Details Date Type Department Care Team (Late st Contact Info) Description 09/12/2022 Refill [facility] [place] [address] [place] [address] Fiorella Argueta, IRVING, TUMBLE TAILSTOCK TURRET LATHE OPERATOR [address] [place] [address] [id number] Medication Refill Social History Tobacco Use Types [...] Sex Assigned at Female 08/07/2023 2:01 PM STRUCTURAL STEEL ERECTOR Legal Sex Female 3:34 AM STRUCTURAL STEEL ERECTOR Gender Identity Female 08/07/2023 2:01 PM STRUCTURAL STEEL ERECTOR Sexual Orientation Straight 08/07/2023 2: 01 PM STRUCTURAL STEEL ERECTOR COVID-19 Exposure Response Date Recorded In the last 10 days, have yo u been in contact with someone who was confirmed or suspected to have Coronavirus/COVID-19? Yes 09/13/2022 10:56 AM STRUCTURAL STEEL ERECTOR documented as of this encounter Miscellaneous Notes * Telephone Encounter - Penny Augustine RN - 09/13/2022 12:02 PM STRUCTURAL STEEL ERECTOR Requested Prescriptions Pending Prescriptions Disp Refills naproxen (NAPROSYN) 500 MG Tablet [Pharmacy Med Name: NAPROXEN 500 MG TABLET] 30 Tablet 0 Sig: TAKE ONE TABLET BY MOUTH TWICE A DAY WITH MEALS NSAIDs Protocol Failed - 09/12/2022 6:00 AM Failed - No matching NSAID med order in past 45 days Matching medication order placed on 08/31/2022 3:13 PM Order [id number]: naproxen (NAPROSYN) 500 MG Tablet (For orders placed between 07/30/2022 12:02 PM and 09/13/2022 12:02 PM) Passed - Normal serum creatinine in past 12 months CREATININE, BLOOD Date Value Ref Range Status 03/23/2022 0.73 0.60 - 1.00 mg/dL Final Passed - Visit with relevant provider in past 12 months or upcoming 90 days Recent Visits Date Type Provider Dept 08/31/22 Office Visit Fiorella Argueta APRN, CNP [facility] 07/30/22 Office Visit William Mejia MD [facility] 07/26/22 Office Visit Fiorella Argueta APRN, CNP [facility] 03/16/22 Office Visit Fiorella Argueta APRN, CNP [facility] 02/18/22 Office Visit Fiorella Argueta APRN, CNP [facility] 10/01/21 Office Visit Fiorella Argueta APRN, CANDACE [facility] Showing recent visits within past 365 days and meeting all other requirements Future Appointments No visits were found meeting these conditions. Showing future appointments within next 90 days and meeting all other requirements Passed - AST less than 55 or ALT less than 90 in past 12 months SGOT (AST) Date Value Ref Range Status 03/23/2022 25 5 - 34 U/L Final SGPT (ALT) Date Value Ref Range Status 03/23/2022 30 0 - 55 U/L Final Passed - HGB greater than 10 or HCT greater than 30 in past 12 months HEMOGLOBIN (HGB) Date Value Ref Range Status 03/23/2022 14.1 12.0 - 15.8 g/dL Final 09/18/2008 13.8 12.0 - 15.8 G/DL Final HEMATOCRIT (HCT) Date Value Ref Range Status 03/23/2022 42.8 36.0 - 47.0 % Final 09/18/2008 43.6 36.0 - 47.0 % Final CTURAL STEEL ERECTOR documented in this encounter Plan of Treatment Upcoming Encounters Date Type Department Care Team (Late st Contact Info) Description 10/25/2024 10:40 AM CDT Office Visit [facility] [place] [address] [place] [id number] Fiorella Argueta, NEUROPHYSIOLOGY TECH, TUMBLE TAILSTOCK TURRET LATHE OPERATOR [address] [place], [place] [address] 01/09/2025 9:30 AM CDT Telemedicine [facility] [address] [place] [address] Joseph Ness, NEUROPHYSIOLOGY TECH, TUMBLE TAILSTOCK TURRET LATHE OPERATOR [address] [place], [place] [phone] Discharge Disposition: Discharged to home or Selfcare documented as of this encounter Visit Diagnoses Not on filedocumented in this encounter Additional Health Concerns Infection Onset Date Last Indicated Resolved Time COVID - 19 Comment:Rapid strep positive 08/08/2023 08/08/2023 08/11/2023 12:22 PM STRUCTURAL STEEL ERECTOR Assessment Noted Time PHQ-9 Depression Total Score: 18 020 9:00 AM STRUCTURAL STEEL ERECTOR documented as of this encounter Care Teams Cotton Seed Culler Relationship Specialty Start Date End Date William Mejia MD [address] [place] [address] [id number] PCP - General Internal Medicine/Pediatrics 04/11/15 Corrie Reddy APRN, TUMBLE TAILSTOCK TURRET LATHE OPERATOR [address] [place] [address] Nurse Practitioner Advanced Practice Nurse 07/09/21 documented as of this encounter
--- OUTSIDE RECORDS SUMMARY | 2024-10-17 10:33 | XMS_ITS | Encounter Summary ---
Author Organization [facility] Address [address] [place] [address] Phone Care Team Providers Care Heating Unit Mechanic Name Role Phone William Mejia MD Primary Care Provider Corrie Reddy APRN, DENTIST/OWNER Unavailable [phone] Reason for Visit * Reason Comments Medication Refill Encounter Details Date Type Department Care Team (Late st Contact Info) Description 02/22/2021 Refill [facility] [place] [address] [place] [address] William Mejia MD 10 [facility] [address] [place], [place] [address] Medication Refill Social History Tobacco Use Types [...] Sex Assigned at Female 08/07/2023 2:01 PM SPRING COILER HAND Legal Sex Female 3:34 AM SPRING COILER HAND Gender Identity Female 08/07/2023 2:01 PM SPRING COILER HAND Sexual Orientation Straight 08/07/2023 2: 01 PM SPRING COILER HAND COVID-19 Exposure Response Date Recorded In the last month, have you been in contact with someone who was confirmed or suspected to have Coronavirus / COVID-19? No / Unsure 02/17/2021 6:24 PM CDT documented as of this encounter Miscellaneous Notes * Telephone Encounter - [place] RN - 02/24/2021 9:37 AM CDT Medication failed the protocol, provider to review and approve the medication order if appropriate. Future Appointments Date Type Provider Dept 02/25/21 Appointment Fiorella Argueta APN, CNP [facility] Showing future appointments within next 90 days with a meds authorizing provider and meeting all other requirements Requested Prescriptions Pending Prescriptions Disp Refills pramipexole (MIRAPEX) 1 MG Tablet [Pharmacy Med Name: PRAMIPEXOLE 1 MG TABLET] 30 Tablet 5 Sig: TAKE ONE TABLET BY MOUTH EVERY EVENING [facility]: Parkinsonian Agents Failed - 02/22/2021 4:56 PM Failed - Last BP in normal range BP Readings from Last 1 Encounters: 05/23/20 (!) 132/102 Passed - Valid encounter within last 12 months Past Office Visits Recent Outpatient Visits 9 months ago Cellulitis of right external ear [facility] William Mejia MD 1 year ago Tendonitis of foot [facility] Fiorella Argueta, CALL CENTER TRAINER, DENTIST/OWNER 2 years ago Cellulitis of left lower extremity [facility] Fiorella Argueta, CALL CENTER TRAINER, DENTIST/OWNER 2 years ago Skin lesion [facility] Fiorella Argueta, CALL CENTER TRAINER, DENTIST/OWNER 3 years ago Depression with anxiety [facility] Fiorella Argueta, CALL CENTER TRAINER, DENTIST/OWNER Upcoming Appointments Future Appointments Tomorrow Fiorella Argueta APN, DENTIST/OWNER [place], [place] [facility] ACCOUNT DIRECTOR - Recent and Past Visits Recent Visits Date Type Provider Dept 05/23/20 Office Visit William Mejia MD [facility] 01/23/20 Office Visit Fiorella Argueta APN DENTIST/OWNER [facility] Showing recent visits within past 460 days with a meds authorizing provider and meeting all other requirements Future Appointments Date Type Provider Dept 02/25/21 Appointment Fiorella Argueta, CALL CENTER TRAINER, DENTIST/OWNER [facility] Showing future appointments within next 90 days with a meds authorizing provider and meeting all other requirements documented in this encounter Plan of Treatment Upcoming Encounters Date Type Department Care Team (Late st Contact Info) Description 10/25/2024 10:40 AM CDT [facility] Visit [facility] [place] [address] [place] [phone] Fiorella Argueta, CIRCUIT TESTER, DENTIST/OWNER [address] [place], [place] [address] 01/09/2025 9:30 AM CDT Telemedicine [facility] [address] [place] [phone] Joseph Ness APRN, DENTIST/OWNER [address] [place] [address] Discharge Disposition: Discharged to home or Selfcare documented as of this encounter Visit Diagnoses Not on filedocumented in this encounter Additional Health Concerns Infection Onset Date Last Indicated Resolved Time COVID - 19 06/01/2021 06/01/2021 06/01/2021 12:5 8 PM CDT COVID - 19 06/01/2021 06/01/2021 06/01/2021 9:31 PM CDT COVID - 19 Confirmed 06/01/2021 06/01/202106/21/2 021 12:16 AM SPRING COILER HAND COVID - 19 08/07/2021 08/07/2021 08/27/2021 12:1 6 AM SPRING COILER HAND COVID - 19 07/30/2022 07/30/2022 08/09/2022 12:1 6 AM SPRING COILER HAND Influenza 07/30/2022 07/30/2022 08/06/2022 12:1 6 AM SPRING COILER HAND COVID - 19 Comment:Rapid strep positive 08/08/2023 08/08/2023 08/11/2023 12:22 PM SPRING COILER HAND Assessment Noted Time PHQ-9 Depression Total Score: 18 020 9:00 AM SPRING COILER HAND documented as of this encounter Care Teams Heating Unit Mechanic Relationship Specialty Start Date End Date William Mejia MD 10 [facility] [address] [place] [address] PCP - General Internal Medicine/Pediatrics 04/11/15 Corrie Reddy APRN, DENTIST/OWNER [address] [place] [address] Nurse Practitioner Advanced Practice Nurse 07/09/21 documented as of this encounter
--- OUTSIDE RECORDS SUMMARY | 2024-10-17 10:33 | XMS_ITS | Encounter Summary ---
Author Organization [facility] Address [address] [place] [address] Phone Care Team Providers Care Allied Health Professional Name Role Phone William Mejia MD Primary Care Provider Corrie Reddy APRN, STARS SPECIALIST Unavailable [phone] Reason for Visit * Reason Comments Medication Refill Encounter Details Date Type Department Care Team (Late st Contact Info) Description 12/27/2020 Refill [facility] [place] [address] [place] [address] William Mejia MD 10 [facility] [address] [place], [place] [phone] Medication Refill Social History Tobacco Use Types Packs/Day Years Used Date Smoking Tobacco: Every Day Cigarettes 1 12 Smokeless Tobacco: Never Alcohol Use Standard Drinks/Week Comments No 0 (1 standard drink = 0.6 oz pur e alcohol) PHQ-2 Answer Date Recorded Total Score - Questions 1-9 18 07/10 Comments No Sex and Gender Information Value Date Recorded Sex Assigned at Female 08/07/2023 2:01 PM LIFE SCIENCES DIRECTOR Legal Sex Female 3:34 AM LIFE SCIENCES DIRECTOR Gender Identity Female 08/07/2023 2:01 PM LIFE SCIENCES DIRECTOR Sexual Orientation Straight 08/07/2023 2: 01 PM LIFE SCIENCES DIRECTOR documented as of this encounter Miscellaneous Notes * Telephone Encounter - Nolvia Chairez RN - 12/27/2020 7:13 AM CDT The original prescription was discontinued on 10/20/2020 by Corrie Reddy APN, STARS SPECIALIST for the following reason: Dose adjustment. Renewing this prescription may not be appropriate. Pharmacy notified by [employer]. documented in this encounter Plan of Treatment Upcoming Encounters Date Type Department Care Team (Late st Contact Info) Description 10/25/2024 10:40 AM CDT Office Visit [facility] [place] [address] [place] [phone] Fiorella Argueta, RETURN TO FACTORY CLERK, STARS SPECIALIST [address] [place], [place] [address] 01/09/2025 9:30 AM CDT Telemedicine [facility] [address] [place] [address] Joseph Ness, RETURN TO FACTORY CLERK, STARS SPECIALIST [address] [place], [place] [address] Discharge Disposition: Discharged to home or Selfcare documented as of this encounter Visit Diagnoses Not on filedocumented in this encounter Additional Health Concerns Infection Onset Date Last Indicated Resolved Time COVID - 19 06/01/2021 06/01/2021 06/01/2021 12:5 8 PM CDT COVID - 19 06/01/2021 06/01/2021 06/01/2021 9:31 PM CDT COVID - 19 Confirmed 06/01/2021 06/01/202106/21/2 021 12:16 AM LIFE SCIENCES DIRECTOR COVID - 19 08/07/2021 08/07/2021 08/27/2021 12:1 6 AM LIFE SCIENCES DIRECTOR COVID - 19 07/30/2022 07/30/2022 08/09/2022 12:1 6 AM LIFE SCIENCES DIRECTOR Influenza 07/30/2022 07/30/2022 08/06/2022 12:1 6 AM LIFE SCIENCES DIRECTOR COVID - 19 Comment:Rapid strep positive 08/08/2023 08/08/2023 08/11/2023 12:22 PM LIFE SCIENCES DIRECTOR Assessment Noted Time PHQ-9 Depression Total Score: 18 020 9:00 AM LIFE SCIENCES DIRECTOR documented as of this encounter Care Teams Allied Health Professional Relationship Specialty Start Date End Date William Mejia MD 10 [facility] [address] [place] [address] PCP - General Internal Medicine/Pediatrics 04/11/15 Corrie Reddy, IRVING, STARS SPECIALIST [address] [place] [address] Nurse Practitioner Advanced Practice Nurse 07/09/21 documented as of this encounter
--- OUTSIDE RECORDS SUMMARY | 2024-10-17 10:33 | XMS_ITS | Encounter Summary ---
Author Organization [facility] Address [address] [place] [address] Phone Care Team Providers Care Lithographic Plate Maker Apprentice Name Role Phone William Mejia MD Primary Care Provider Corrie Reddy APRN, TRENCHING MACHINE OPERATOR Unavailable Reason for Visit * Reason Comments Medication Refill Encounter Details Date Type Department Care Team (Late st Contact Info) Description 06/11/2020 Refill [facility] [place] [address] [place] [address] Trice Mckeon APRN, TRENCHING MACHINE OPERATOR [address] [place] [phone] Medication Refill Social History Tobacco Use Types Packs/Day Years Used Date Smoking Tobacco: Every Day Cigarettes 1.5 12 Smokeless Tobacco: Never Alcohol Use Standard Drinks/Week Comments No 0 (1 standard drink = 0.6 oz pur e alcohol) Comments No Sex and Gender Information Value Date Recorded Sex Assigned at Female 08/07/2023 2:01 PM PEOPLESOFT HR DEVELOPER Legal Sex Female 3:34 AM PEOPLESOFT HR DEVELOPER Gender Identity Female 08/07/2023 2:01 PM PEOPLESOFT HR DEVELOPER Sexual Orientation Straight 08/07/2023 2: 01 PM PEOPLESOFT HR DEVELOPER COVID-19 Exposure Response Date Recorded In the last month, have you been in contact with someone who was confirmed or suspected to have Coronavirus / COVID-19? No / Unsure 05/23/2020 8:36 AM CDT documented as of this encounter Miscellaneous Notes * Telephone Encounter - Lluvia Corrales APN, CNP - 06/11/2020 10:02 AM PEOPLESOFT HR DEVELOPER Medication failed the protocol, provider to review and approve the medication order if appropriate. Requested Prescriptions Pending Prescriptions Disp Refills buPROPion (WELLBUTRIN) 150 MG XL tablet [Pharmacy Med Name: BUPROPION HCL XL 150 MG TABLET] 90 Tab 0 Sig: TAKE 1 TABLET BY MOUTH EVERY DAY IN THE MORNING Not Delegated - Psychiatry: Antidepressants Failed - 06/11/2020 3:29 AM Failed - This refill cannot be delegated Passed - Valid encounter within last 12 months Past Office Visits Recent Outpatient Visits 2 weeks ago Cellulitis of right external ear [facility] William Mejia MD 4 months ago Tendonitis of foot [facility] Fiorella Argueta APN, CNP 1 year ago Cellulitis of left lower extremity [facility] Fiorella Argueta APN, CNP 1 year ago Skin lesion [facility] Fiorella Argueta APN, CNP 2 years ago Depression with anxiety [facility] Fiorella Argueta APN, CNP Upcoming Appointments LOCAL DRIVER - Recent and Past Visits Recent Visits Date Type Provider Dept 05/23/20 Office Visit William Mejia MD [facility] 01/23/20 Office Visit Fiorella Argueta APN, CNP [facility] Showing recent visits within past 460 days with a meds authorizing provider and meeting all other requirements Future Appointments No visits were found meeting these conditions. Showing future appointments within next 90 days with a meds authorizing provider and meeting all other requirements LESOFT HR DEVELOPER documented in this encounter Plan of Treatment Upcoming Encounters Date Type Department Care Team (Late st Contact Info) Description 10/25/2024 10:40 AM CDT Office Visit [facility] [address] [place] [phone] Fiorella Argueta APRN, CNP [address] [place] [address] 01/09/2025 9:30 AM CDT Telemedicine [facility] [address] [place] [address] Joseph Ness APRN, TRENCHING MACHINE OPERATOR [address] [place] [address] Discharge Disposition: Discharged to home or Selfcare documented as of this encounter Visit Diagnoses Not on filedocumented in this encounter Additional Health Concerns Infection Onset Date Last Indicated Resolved Time COVID - 19 06/01/2021 06/01/2021 06/01/2021 12:5 8 PM CDT COVID - 19 06/01/2021 06/01/2021 06/01/2021 9:31 PM CDT COVID - 19 Confirmed 06/01/2021 06/01/2021 021 12:16 AM PEOPLESOFT HR DEVELOPER COVID - 19 08/07/2021 08/07/2021 08/27/2021 12:1 6 AM PEOPLESOFT HR DEVELOPER COVID - 19 07/30/2022 07/30/2022 08/09/2022 12:1 6 AM PEOPLESOFT HR DEVELOPER Influenza 07/30/2022 07/30/2022 08/06/2022 12:1 6 AM PEOPLESOFT HR DEVELOPER COVID - 19 Comment:Rapid strep positive 08/08/2023 08/08/2023 08/11/2023 12:22 PM PEOPLESOFT HR DEVELOPER Assessment Noted Time PHQ-9 Depression Total Score: 14 018 2:17 PM CDT documented as of this encounter Care Teams Lithographic Plate Maker Apprentice Relationship Specialty Start Date End Date William Mejia MD 10 [facility] [address] [place] [address] PCP - General Internal Medicine/Pediatrics 04/11/15 Corrie Reddy APRN, TRENCHING MACHINE OPERATOR [address] [place] [address] Nurse Practitioner Advanced Practice Nurse 07/09/21 documented as of this encounter
--- OUTSIDE RECORDS SUMMARY | 2024-10-17 10:33 | XMS_ITS | Encounter Summary ---
Author Organization [facility] Address [address] [place] [address] Phone Care Team Providers Care Vp Corporate Partnerships Name Role Phone William Mejia MD Primary Care Provider Corrie Reddy APRN, DINING SERVICES MANAGER Unavailable [phone] Reason for Visit * Reason Comments Medication Refill Encounter Details Date Type Department Care Team (Late st Contact Info) Description 09/29/2020 Refill [facility] [place] [address] [place] [address] Trice Mckeon APRN, DINING SERVICES MANAGER [address] [place] [phone] Medication Refill Social History Tobacco Use Types [...] Sex Assigned at Female 08/07/2023 2:01 PM LIBERAL ARTS TEACHER Legal Sex Female 3:34 AM LIBERAL ARTS TEACHER Gender Identity Female 08/07/2023 2:01 PM LIBERAL ARTS TEACHER Sexual Orientation Straight 08/07/2023 2: 01 PM LIBERAL ARTS TEACHER COVID-19 Exposure Response Date Recorded In the last month, have you been in contact with someone who was confirmed or suspected to have Coronavirus / COVID-19? Yes 10/01/2020 9:46 AM LIBERAL ARTS TEACHER documented as of this encounter Miscellaneous Notes * Telephone Encounter - Mayuri Rueda RN - 09/29/2020 12:30 PM LIBERAL ARTS TEACHER Medication failed the protocol, provider to review and approve the medication order if appropriate. Requested Prescriptions Pending Prescriptions Disp Refills buPROPion (WELLBUTRIN) 150 MG XL tablet [Pharmacy Med Name: BUPROPION HCL XL 150 MG TABLET] 90 Tablet 0 Sig: TAKE 1 TABLET BY MOUTH EVERY DAY IN THE MORNING Not Delegated - Psychiatry: Antidepressants Failed - 09/29/2020 12:05 AM Failed - This refill cannot be delegated Passed - Valid encounter within last 12 months Past Office Visits Recent Outpatient Visits 4 months ago Cellulitis of right external ear [facility] William Mejia MD 8 months ago Tendonitis of foot [facility] Fiorella Argueta, SHOW HOST OR HOSTESS, DINING SERVICES MANAGER 1 year ago Cellulitis of left lower extremity [facility] Fiorella Argueta, SHOW HOST OR HOSTESS, DINING SERVICES MANAGER 1 year ago Skin lesion [facility] Fiorella Argueta, SHOW HOST OR HOSTESS, DINING SERVICES MANAGER 2 years ago Depression with anxiety [facility] Fiorella Argueta, SHOW HOST OR HOSTESS, DINING SERVICES MANAGER Upcoming Appointments Future Appointments In 2 days Nakia Pedersen, [facility], [place] In 3 weeks Corrie Reddy APN, DINING SERVICES MANAGER [facility], [place]LIN Soler Arrive at: Virtual Visit WELLNESS PROGRAM COORDINATOR - Recent and Past Visits Recent Visits Date Type Provider Dept 05/23/20 Office Visit William Mejia MD [facility] [place] 01/23/20 Office Visit Fiorella Argueta APN, DINING SERVICES MANAGER [facility] Showing recent visits within past 460 days with a meds authorizing provider and meeting all other requirements Future Appointments No visits were found meeting these conditions. Showing future appointments within next 90 days with a meds authorizing provider and meeting all other requirements RAL ARTS TEACHER documented in this encounter Plan of Treatment Upcoming Encounters Date Type Department Care Team ([facility] Info) Description 10/25/2024 10:40 AM CDT Office Visit [facility] [place] [address] [place] [address] Fiorella Argueta, ASPHALT ROLLER PERSON, DINING SERVICES MANAGER [address] [place], [place] [address] 01/09/2025 9:30 AM CDT Telemedicine [facility] [address] [place] [phone] Joseph Ness, ASPHALT ROLLER PERSON, DINING SERVICES MANAGER [address] [place], [place] [phone] Discharge Disposition: Discharged to home or Selfcare documented as of this encounter Visit Diagnoses Not on filedocumented in this encounter Additional Health Concerns Infection Onset Date Last Indicated Resolved Time COVID - 19 06/01/2021 06/01/2021 06/01/2021 12:5 8 PM CDT COVID - 19 06/01/2021 06/01/2021 06/01/2021 9:31 PM CDT COVID - 19 Confirmed 06/01/2021 06/01/2021 021 12:16 AM LIBERAL ARTS TEACHER COVID - 19 08/07/2021 08/07/2021 08/27/2021 12:1 6 AM LIBERAL ARTS TEACHER COVID - 19 07/30/2022 07/30/2022 08/09/2022 12:1 6 AM LIBERAL ARTS TEACHER Influenza 07/30/2022 07/30/2022 08/06/2022 12:1 6 AM LIBERAL ARTS TEACHER COVID - 19 Comment:Rapid strep positive 08/08/2023 08/08/2023 08/11/2023 12:22 PM LIBERAL ARTS TEACHER Assessment Noted Time PHQ-9 Depression Total Score: 18 020 9:00 AM LIBERAL ARTS TEACHER documented as of this encounter Care Teams Vp Corporate Partnerships Relationship Specialty Start Date End Date William Mejia MD [address] [facility] [address] [place] [address] PCP - General Internal Medicine/Pediatrics 04/11/15 Corrie Reddy APRN, DINING SERVICES MANAGER [address] [place] [address] Nurse Practitioner Advanced Practice Nurse 07/09/21 documented as of this encounter
== END 2024-10-17 10:30 | disposition home or self-care (01) ==
PROVIDERS: Emergency Provider Nurse Practitioner Family
DX: B34.9 Viral infection, unspecified (principal); J06.9 Acute upper respiratory infection, unspecified; J02.9 Acute pharyngitis, unspecified; Z20.822 Contact with and (suspected) exposure to COVID-19
CPT/HCPCS: 87081; 87426; 87804; 87880; 99203; G0463